=== PATIENT | male | born 1980 | race Caucasian/White ===

== ENCOUNTER 2016-05-14 18:02 | Emergency (ER) | payer BC ==
[2016-05-14 18:31] VITALS: BP 137/81; PULSE 100; RESP 20; TEMP 98.6
--- NOTE | 2016-05-14 18:59 | XR ---
PA chest x-ray with left RIBS HISTORY: Injury, pain Frontal view of the chest correlated to prior chest x-ray 17 January 2014. 4 views of the left ribs . No displaced rib fracture. No pneumothorax or pleural effusion. Chest x-ray is unremarkable. IMPRESSION: Bone scan could be performed for increased sensitivity should nondisplaced rib fracture b e suspected clinically.
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
== END 2016-05-14 19:04 | disposition home or self-care (01) ==
LOC: EC 18:02
DX: S20.212A Contusion of left front wall of thorax, initial encounter (principal); F17.200 Nicotine dependence, unspecified, uncomplicated; Z79.899 Other long term (current) drug therapy; X58.XXXA Exposure to other specified factors, initial encounter
CPT/HCPCS: 99283

== ENCOUNTER → 2018-08-09 | Day surgery (SDC) | payer BC ==
[2018-08-06 15:08] VITALS: BMI 30.1
[~2018-08-09] MED LIST: LACTATED RINGERS 1,000 ML IV SCH; LIDOCAINE 1% INJ 10MG/ML (20 ML MDV) ONE; PROPOFOL 10 MG/ML 20 ML VIAL IV ONE
[2018-08-09 08:26] VITALS: TEMP 97.8
[2018-08-09 09:00] VITALS: RESP 16
[2018-08-09 09:15] VITALS: BP 123/84; PULSE 78
--- NOTE | 2018-08-09 09:48 | P.PCN ---
Date of Procedure: 08/09/18 Procedure(s) Performed: Procedure: Esophagogastroduodenoscopy and biopsy. Preoperative diagnosis: Recurrent abdominal pain and history of acid reflux. Postoperative diagnosis: 1. Small sliding hiatal hernia with no obvious esophagitis or complicated reflux disease. 2. Mild antral gastritis. 3. Multiple biopsies obtained from the duodenum, antrum and esophagus. Preparation sedation: Was provided by anesthesia. Brief clinical history: The patient is a 57-year-old male who was evaluated in the office last month for abdominal pain off around 2 years duration. No associated nausea, vomiting or dysphagia. Has occasional diarrhea. No weight loss or other alarm symptoms. Ultrasound of the abdomen done in the past was negative for gallstones. This evaluation is to assess for esophagitis, complicated reflux disease or other pathology. Procedure: With the patient on his left lateral decubitus position and after informed consent and adequate sedation, I passed the Olympus-GIF H 190 video upper endoscope through the cricopharyngeus down the esophagus. There was a small sliding hiatal hernia but no obvious esophagitis or complicated reflux disease. The endoscope was then passed into the stomach which was insufflated with air and inspected in detail including the retroflex view in the cardia. There was some mottling and erythema in the antrum but no ulcers or erosions. Pyloric channel, duodenal bulb, post bulbar area and descending duodenum appeared within normal limits. I obtained multiple biopsies from the duodenum, antrum and esophagus then the endoscope was withdrawn. The patient tolerated the procedure well. Plan: The patient was reassured. Will await biopsy results and make further plans based on his course and biopsy results. I will keep you updated on his progress.
== END ==
LOC: ORWHC2ENDO 08:10
DX: K21.0 Gastro-esophageal reflux disease with esophagitis (principal); K29.50 Unspecified chronic gastritis without bleeding; K44.9 Diaphragmatic hernia without obstruction or gangrene; F17.210 Nicotine dependence, cigarettes, uncomplicated; Z79.51 Long term (current) use of inhaled steroids; Z79.899 Other long term (current) drug therapy
CPT/HCPCS: 88305; 43239; J2001; J2704